=== PATIENT | female | born 1980 | race Caucasian/White ===

== ENCOUNTER 2016-10-04 05:34 | Emergency (ER) | payer BC, OTHER ==
[~2016-10-04] VITALS: Ht 157.5 cm; Wt 50.1 kg
[2016-10-04 05:40] VITALS: BP 124/89
== END 2016-10-04 06:03 | disposition home or self-care (01) ==
LOC: EDBD 05:34 → ED 05:57
DX: R10.9 Unspecified abdominal pain (principal); Z53.21 Procedure and treatment not carried out due to patient leaving prior to being seen by health care provider